=== PATIENT | female | born 1940 | race Caucasian/White ===

== ENCOUNTER 2021-10-04 20:46 | Inpatient (IN) | payer MEDICARE ==
[~2021-10-04] VITALS: Ht 162.6 cm; Wt 57.2 kg
--- NOTE | 2021-10-04 20:55 | NUR ---
ER BED 1 BIBRA FROM HOME FOR NAUSEA VOMITTING AND DIARRHEA X FEW HOURS AFTER EATING. R UPPER LIP LACERATION NOTED. MD AWARE. SON AT BEDSIDE. PT DENIES ANY CHEST PAIN. NO RESPIRATORT DISTRES NOTED. CONNECTED TO MONITOR. AWAITING MD ALSTON
[2021-10-04] MEDS ORDERED: ONDANSETRON HCL/PF 4 MG/2 ML VIAL ONE (21:24)
--- NOTE | 2021-10-04 21:25 | NUR ---
IV LINE ESTABLISHED L AC 20G, BLOOD COLLECTED AND SENT TO LAB.
[2021-10-04] MEDS ORDERED: ONDANSETRON HCL/PF 4 MG/2 ML VIAL IVP ONE (21:30)
[2021-10-04] MEDS ORDERED: IV NS 0.9% 1,000 ML BAG IV ONE (21:30)
[2021-10-04 21:47] LABS: BASOPHILS % (AUTO) 0.3 % (0.0-2.0); EOSINOPHILS % (AUTO) 1.2 % (0.0-6.0); HEMATOCRIT 40 % (33-45); HEMOGLOBIN 13.4 g/dL (11.5-14.8); LYMPHOCYTES # (AUTO) 0.4 K/uL (0.8-4.8); LYMPHOCYTES % (AUTO) 2.9 % (20.0-44.0); MEAN CORPUSCULAR HGB CONC 34 g/dl (31.0-36.0); MEAN CORPUSCULAR VOLUME 91 fL (82-100); MONOCYTES # (AUTO) 0.6 K/uL (0.1-1.30); MONOCYTES % (AUTO) 4.5 % (2.0-12.0); NEUTROPHILS % (AUTO) 91.1 % (43.0-81.0); PLATELET COUNT (AUTO) 250 K/uL (150-450); RED BLOOD CELL COUNT(AUTO) 4.39 MIL/uL (4.0-5.2); WHITE BLOOD COUNT (AUTO) 14.2 K/uL (4.3-11.0)
--- NOTE | 2021-10-04 21:49 | NUR ---
PT UNABLE TO PROVIDE URINE SAMPLE AT THIS TIME
--- NOTE | 2021-10-04 21:59 | NUR ---
COVID ANTIGEN SWAB COLLECTED AND SENT TO LAB
--- NOTE | 2021-10-04 22:22 | NUR ---
Covid swab done Addendum: 10/04/21 at 2227 by ELSA and sent to lab
--- NOTE | 2021-10-04 23:33 | NUR ---
HOSPITALIST AT BEDSIDE
--- NOTE | 2021-10-04 23:33 | NUR ---
PT UNABLE TO PROVIDE URINE SAMPLE AT THIS TIME, REFUSES URINE CATH
[2021-10-04 23:40] LABS: CALCIUM, SERUM 10.6 mg/dL (8.5-10.1); CARBON DIOXIDE 29 mmol/L (21-32); CHLORIDE 104 mmol/L (98-107); GLUCOSE 145 mg/dL (74-106); POTASSIUM 4.6 mmol/L (3.5-5.1); SODIUM SERUM 140 mmol/L (136-145); UREA NITROGEN, BLOOD 22 mg/dL (7-18)
[2021-10-04 23:45] LABS: ALANINE AMINOTRANSFERASE 12 U/L (12-78); ALBUMIN 3.4 g/dL (3.4-5.0); ALKALINE PHOSPHATASE 72 U/L (46-116); ASPARTATE AMINOTRANSFERASE 16 U/L (15-37); BILIRUBIN,DIRECT 0.2 mg/dL (0.0-0.2); BILIRUBIN,TOTAL 0.5 mg/dL (0.2-1.0); LIPASE 74 U/L (73-393); TOTAL PROTEIN, SERUM 7.6 g/dL (6.4-8.2)
[2021-10-05] MEDS ORDERED: MAG HYDROX/AL HYDROX/SIMETH 30 ML UDC PO PRN
[2021-10-05] MEDS ORDERED: MAGNESIUM HYDROXIDE 30 ML UDC PO PRN
[2021-10-05] MEDS ORDERED: MORPHINE SULFATE INJ 2 MG/ML DISP.SYRIN IV PRN
[2021-10-05] MEDS ORDERED: hydrALAZINE HCL IV 20 MG VIAL IV PRN
[2021-10-05] MEDS ORDERED: ACETAMINOPHEN 325 MG TABLET PO PRN
[2021-10-05] MEDS ORDERED: Z GUARD REMEDY 4 OZ OINT TP PRN
[2021-10-05] MEDS ORDERED: ONDANSETRON HCL/PF 4 MG/2 ML VIAL IVP PRN
[2021-10-05] MEDS ORDERED: IV NS 0.9% 1,000 ML IV SCH
--- NOTE | 2021-10-05 00:26 | NUR ---
URINE SAMPLE COLLECTED AND SENT TO LAB
--- NOTE | 2021-10-05 00:49 | NUR ---
ROOM 322-2 M/S
[2021-10-05 00:53] LABS: BILIRUBIN,URINE NEGATIVE (NEGATIVE); COLOR,URINE YELLOW (YELLOW); LEUKOCYTE ESTERASE ,URINE TRACE (NEGATIVE); NITRITE, URINE NEGATIVE (NEGATIVE); PROTEIN,URINE NEGATIVE (NEGATIVE); UGLUCOSE NEGATIVE (NEGATIVE); UROBILINOGEN,URINE 0.2 EU/dL (0.2)
--- NOTE | 2021-10-05 00:55 | NUR ---
GAVE REPORT TO OLINDA VAUGHN FOR VERENICE
[2021-10-05 01:00] LABS: BACTERIA,URINE Many /HPF (None Seen); RBC,URINE 0-2 /HPF (0-2)
[2021-10-05 01:01] LABS: SQUAMOUS EPITHELIAL CELL,UR Many /HPF (None Seen)
[2021-10-05 01:45] VITALS: BP 120/67
[2021-10-05] MEDS: DONEPEZIL 5 MG TABLET PO SCH ×2 (01:52→21:17)
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
[2021-10-05 02:15] LABS: THYROID STIMULATING HORMONE 3.375 uIU/mL (0.358-3.74)
[2021-10-05] MEDS ORDERED: LOPERAMIDE HCL (2 MG CAP) 2 MG CAPSULE PO PRN (02:30)
[2021-10-05] MEDS ORDERED: LOPERAMIDE HCL (2 MG CAP) 2 MG CAPSULE ONE (02:31)
--- NOTE | 2021-10-05 02:35 | NUR ---
MS RN NOTE PATIENT HAVING DIARRHEA X 2 SINCE ARRIVING ON FLOOR. NOTIFIED RADIO AERIAL INSTALLER MD WITH ORDER FOR PRN IMODIUM 4 MG PO Q6H. ORDER CARRIED OUT. MEDICATION GIVEN ORDERED. WILL CONTINUE TO MONITOR PATIENT
[2021-10-05 06:10] LABS: BASOPHILS % (AUTO) 0.2 % (0.0-2.0); EOSINOPHILS % (AUTO) 0.1 % (0.0-6.0); HEMATOCRIT 32 % (33-45); HEMOGLOBIN 11.1 g/dL (11.5-14.8); LYMPHOCYTES # (AUTO) 0.2 K/uL (0.8-4.8); LYMPHOCYTES % (AUTO) 2.3 % (20.0-44.0); MEAN CORPUSCULAR HGB CONC 35 g/dl (31.0-36.0); MEAN CORPUSCULAR VOLUME 92 fL (82-100); MONOCYTES # (AUTO) 0.2 K/uL (0.1-1.30); MONOCYTES % (AUTO) 2.1 % (2.0-12.0); NEUTROPHILS # (AUTO) 7.7 K/uL (1.8-8.9); NEUTROPHILS % (AUTO) 95.3 % (43.0-81.0); PLATELET COUNT (AUTO) 193 K/uL (150-450); WHITE BLOOD COUNT (AUTO) 8.1 K/uL (4.3-11.0)
[2021-10-05] MEDS ORDERED: DONE10TA44 PO (06:20)
[2021-10-05 06:35] LABS: ALBUMIN 3.2 g/dL (3.4-5.0); BILIRUBIN,TOTAL 0.6 mg/dL (0.2-1.0); CALCIUM, SERUM 8.5 mg/dL (8.5-10.1); MAGNESIUM 1.8 mg/dL (1.8-2.4); PHOSPHORUS 3.5 mg/dL (2.5-4.9); POTASSIUM 3.9 mmol/L (3.5-5.1); TOTAL PROTEIN, SERUM 6.2 g/dL (6.4-8.2)
--- NOTE | 2021-10-05 06:57 | NUR ---
MS RN CLOSING NOTE PATIENT AWAKE IN BED, ALERT/ORIENTED X 3 HOWEVER CONFUSED AT TIMES AND REPEATS STORIES OVER AND OVER. PT STATES SHE FEELS BETTER AND HOPES SHE CAN GO HOME TODAY. PATIENT STABLE ON ROOM AIR, NO S/S OF DISTRESS OR SOB NOTED, BREATHING EVEN AND UNLABORED. IV ACCESS ON LEFT AC #20G INTACT AND INFUSING NS @ 100 ML/HR. PATIENT IS AMBULATORY WITH ASSIST TO BSC, HOWEVER, HAD EPISODES OF INCONTINENCE D/T DIARRHEA, NO MORE DIARRHEA AFTER IMODIUM WAS GIVEN. SAFETY MEASURES IN PLACE: CALL LIGHT WITHIN REACH, SIDE RAILS UP X 2, BED LOCKED IN LOWEST POSITION, BED ALARM ON. WILL ENDORSE TO DAY SHIFT NURSE FOR CONTINUITY OF CARE
--- NOTE | 2021-10-05 07:30 | NUR ---
MS RN OPENING NOTE PATIENT AWAKE IN BED, ALERT/ORIENTED X 3 . UAIND BED SIDE COMMODE AT THIS TIME. PATIENT STABLE ON ROOM AIR, NO S/S OF DISTRESS OR SOB NOTED, BREATHING EVEN AND UNLABORED. IV ACCESS ON LEFT AC #20G INTACT AND INFUSING NS @ 100 ML/HR. PATIENT IS AMBULATORY WITH ASSIST. SAFETY MEASURES IN PLACE: CALL LIGHT WITHIN REACH, SIDE RAILS UP X 2, BED LOCKED IN LOWEST POSITION, BED ALARM ON. WILL CONTINUE TO MONITOR.
[2021-10-05 07:52] LABS: SERUM AMMONIA 39 umol/L (11-32)
[2021-10-05 08:00] VITALS: BP 116/53
[2021-10-05] MEDS: HEPARIN SODIUM, PORCINE 5000 UNITS/1 ML VIAL SQ SCH ×2 (09:45→21:18)
[2021-10-05] MEDS: ENSURE ENLIVE CHOC 237 ML CAN PO SCH (12:13)
[2021-10-05] MEDS: CEFTRIAXONE 1 G in IV D5W 50 ML IV SCH (13:21)
[2021-10-05 16:00] VITALS: BP 104/53
[2021-10-05] MEDS: IV NS 0.9% 1,000 ML IV PRN (17:06)
--- NOTE | 2021-10-05 19:00 | NUR ---
Rn opening notes Pt is sitting in bed comfortably talking with Pt's son. Pt is alert and orientedX3. On room air. No SOB. No S/S of distress noted. Iv site at LAC # 20 is clean, intact and infuising well NS@ 100ml/hr. Safety precautions is maintained all the time. bed at low position, brakes locked, side rails up#2, bedside commode at the bedside, hob elevated and call light is within reach. Will continue to monitor.
--- NOTE | 2021-10-05 19:10 | NUR ---
MS RN CLOSING NOTE PATIENT AWAKE IN BED, ALERT/ORIENTED X 3 . SON AT HER BED SIDE. PATIENT STABLE ON ROOM AIR, NO S/S OF DISTRESS OR SOB NOTED, BREATHING EVEN AND UNLABORED. IV ACCESS ON LEFT AC #20G INTACT AND INFUSING NS @ 100 ML/HR. PATIENT IS AMBULATORY WITH ASSIST. ALL DUE MEDS GIVEN ORDERED.SAFETY MEASURES IN PLACE: FALL SAFETY IN PLACE.CALL LIGHT WITHIN REACH, SIDE RAILS UP X 2, BED LOCKED IN LOWEST POSITION, BED ALARM ON. WILL ENDORSE FOR VERENICE.
[2021-10-05 20:00] VITALS: BP 124/77
[2021-10-06] MEDS: IV NS 0.9% 1,000 ML IV PRN (03:04)
--- NOTE | 2021-10-06 05:25 | NUR ---
RN notes Pt is complaining of headache and requesting meds. administered tylenol 650 mg/po/prn as ordered for headache. will continue to monitor.
[2021-10-06 06:29] LABS: BASOPHILS % (AUTO) 0.5 % (0.0-2.0); EOSINOPHILS % (AUTO) 3.7 % (0.0-6.0); HEMATOCRIT 31 % (33-45); HEMOGLOBIN 11.3 g/dL (11.5-14.8); LYMPHOCYTES # (AUTO) 0.6 K/uL (0.8-4.8); LYMPHOCYTES % (AUTO) 13.6 % (20.0-44.0); MEAN CORPUSCULAR HGB CONC 36 g/dl (31.0-36.0); MEAN CORPUSCULAR VOLUME 92 fL (82-100); MONOCYTES # (AUTO) 0.4 K/uL (0.1-1.30); MONOCYTES % (AUTO) 8.4 % (2.0-12.0); NEUTROPHILS # (AUTO) 3.5 K/uL (1.8-8.9); NEUTROPHILS % (AUTO) 73.8 % (43.0-81.0); PLATELET COUNT (AUTO) 177 K/uL (150-450); RED BLOOD CELL COUNT(AUTO) 3.42 MIL/uL (4.0-5.2); WHITE BLOOD COUNT (AUTO) 4.7 K/uL (4.3-11.0)
[2021-10-06 06:36] LABS: CALCIUM, SERUM 8.3 mg/dL (8.5-10.1); CARBON DIOXIDE 25 mmol/L (21-32); CHLORIDE 109 mmol/L (98-107); CREATININE 0.9 mg/dL (0.6-1.3); GLUCOSE 90 mg/dL (74-106); MAGNESIUM 1.8 mg/dL (1.8-2.4); PHOSPHORUS 3.1 mg/dL (2.5-4.9); POTASSIUM 3.4 mmol/L (3.5-5.1); SODIUM SERUM 141 mmol/L (136-145); UREA NITROGEN, BLOOD 16 mg/dL (7-18)
--- NOTE | 2021-10-06 06:57 | NUR ---
RN closing notes Pt is resting in bed comfortably. Pt is alert and orientedX3 and forgetful easily. On room air. No SOB. No S/S of distress noted. VS is stable. Routine meds were given as ordered. Iv site at LAC # 20 is clean, intact and infuising well NS@ 100ml/hr. Kept Pt clean, dry and comfortable. Safety precautions is maintained all the time. bed at low position, brakes locked, side rails up#2, bedside commode at the bedside, bed alarm is on, hob elevated and call light is within reach. Will endorse to am nurse for VERENICE.
--- NOTE | 2021-10-06 07:30 | NUR ---
MS RN OPENING NOTES RECEIVED PATIENT ON BED AWAKE AND A/O X3. ON ROOM AIR TOLERATING WELL. NO SOB NOTED. NOT IN DISTRESS. WITH NO COMPLAINTS OF PAIN OR DISCOMFORT AT THIS TIME. WITH IV ACCESS AT LEFT AC G20 WITH NS AT 100ML/HR INFUSING WELL. SAFETY MEASURES IN PLACED. CALL LIGHT WITHIN REACH. BED ON LOWEST LOCKED POSITION, SIDE RAILS UP X2. WILL CONTINUE TO MONITOR.
[2021-10-06 08:00] VITALS: BP 117/55
[2021-10-06] MEDS: HEPARIN SODIUM, PORCINE 5000 UNITS/1 ML VIAL SQ SCH ×2 (09:48→21:39)
[2021-10-06] MEDS: ENSURE ENLIVE CHOC 237 ML CAN PO SCH (09:51)
[2021-10-06] MEDS ORDERED: POTASSIUM CHLORIDE 20 MEQ TAB.PRT.SR PO SCH (10:30)
--- NOTE | 2021-10-06 10:42 | NUR ---
WOUND CARE CONSULT; PT PRESENTS WITH BLANCHABLE REDNESS TO RT LOWER LEG, SOME DISCOLORATION TO LEFT KNEE AND CRUSTED AREA TO UPPER LIP, PRESENT ON ADMISSION. PT IS AMBULATORY AT THIS TIME AND IS SITTING IN CHAIR, VISITING WITH SON. WILL SEE PRN.
[2021-10-06] MEDS: CEFTRIAXONE 1 G in IV D5W 50 ML IV SCH (11:42)
[2021-10-06 16:00] VITALS: BP 143/73
[2021-10-06] MEDS: MEMANTINE HCL 5 MG TABLET PO SCH (16:31)
--- NOTE | 2021-10-06 19:30 | NUR ---
RN OPENING NOTE PATIENT IN BED, EYES CLOSED. EASILY AWAKENED, PATIENT IS A/O X 3 AT THIS TIME, PT VERY FORGETFUL. CURRENTLY ON RA, TOLERATING WELL, BREATHING EVEN AND UNLABORED. PATIENT HAS A LAC 20 G WITH NS @100 ML/HR ONGOING. PATIENT NOT IN ANY DISCOMFORT OR PAIN AT THIS TIME. PATIENT ABLE TO WALK TO BATHROOM STEADILY. SAFETY MEASURES IN PLACE: BED LOCKED AND IN LOWEST POSITION, CALL LIGHT WITHIN REACH, SIDE RAILS UP. WILL MONITOR PATIENT CLOSELY.
--- NOTE | 2021-10-06 19:47 | NUR ---
MS RN CLOSING NOTES PATIENT ON BED AWAKE AND A/O X3. ON ROOM AIR TOLERATING WELL. NO SOB NOTED. NOT IN DISTRESS. WITH NO COMPLAINTS OF PAIN OR DISCOMFORT AT THIS TIME. WITH IV ACCESS AT LEFT AC G20 WITH NS AT 100ML/HR INFUSING WELL. DUE MEDS GIVEN. SAFETY MEASURES IN PLACED. CALL LIGHT WITHIN REACH. BED ON LOWEST LOCKED POSITION, SIDE RAILS UP X2. WILL ENDORSE TO NEXT SHIFT FOR VERENICE.
[2021-10-06 20:00] VITALS: BP 129/57
[2021-10-06] MEDS: DONEPEZIL 5 MG TABLET PO SCH (21:38)
--- NOTE | 2021-10-06 23:40 | NUR ---
PATIENT ACCIDENTALLY PULLED IV WHILE GOING TO USE THE BATHROOM, NEW IV ACCESS INSERTED ON THE RAC 22 G- PATENT AND INTACT.
[2021-10-07 06:10] LABS: CALCIUM, SERUM 8.5 mg/dL (8.5-10.1); CREATININE 0.8 mg/dL (0.6-1.3); POTASSIUM 3.3 mmol/L (3.5-5.1)
--- NOTE | 2021-10-07 07:33 | NUR ---
RN OPENING NOTE PATIENT IN BED RESTING, AWAKE, A/O X3. NO S/S OF PAIN NOTED AT THIS TIME. ON ROOM AIR, NO DISTRESS OR SHORTNESS OF BREATH NOTED. IV ACCESS RAC #22G INTACT, PATENT AND FLUSHING WELL. FALL AND SAFETY MEASURES IN PLACE, BED ALARM ON, BED IN LOW AND LOCK POSITION, CALL LIGHT AND TABLE WITHIN EASY REACH, SIDE RAILS UP X2. WILL CONTINUE TO MONITOR.
[2021-10-07] MEDS: MEMANTINE HCL 5 MG TABLET PO SCH (08:06)
[2021-10-07] MEDS: ENSURE ENLIVE CHOC 237 ML CAN PO SCH (08:07)
[2021-10-07] MEDS: HEPARIN SODIUM, PORCINE 5000 UNITS/1 ML VIAL SQ SCH (08:08)
[2021-10-07] MEDS ORDERED: POTASSIUM CHLORIDE 20 MEQ TAB.PRT.SR PO SCH (11:00)
[2021-10-07] MEDS ORDERED: CEPH500C2 PO (11:48)
[2021-10-07] MEDS ORDERED: MEMA5TAB PO (11:48)
[2021-10-07] MEDS: CEFTRIAXONE 1 G in IV D5W 50 ML IV SCH (12:08)
--- NOTE | 2021-10-07 17:50 | NUR ---
BLOCK CAPTAIN NOTE PATIENT DISCHARGE IN MEDICAL STABLE CONDITION. A/O X4. V/S TAKEN, STABLE AND RECORDED. NO IV ACCESS. PATIENT WAS VERY ANXIOUS TO LEAVE AND GO HOME AND DIDN'T WANT TO WAIT ANY LONGER, PATIENT REFUSED SKIN ASSESSMENT AND PICTURES, PATIENT HAD A RIGHT UPPER LIP LACERATION AND LEFT KNEE BRUISE. NAME ARM BAND REMOVED. ALL BELONGINGS CHECKED AND SIGNED. HEALTH TEACHING AND DISCHARGE INSTRUCTIONS GIVEN AND VERBALIZED UNDERSTANDING. PATIENT LEFT UNIT AMBULATING WITH NO SIGNS OF DISTRESS, ACCOMPANIED BY RN TO THE LOBBY. PATIENT LEFT UNIT WITH SON. PATIENT WENT HOME WITH HOME HEALTH, ASSISTED HOME HEALTH INFORMATION WAS PROVIDED TO PATIENT. CHARGE NURSE AWARE OF DISCHARGED.
== END 2021-10-07 13:30 | disposition home health service (06) | DRG 640 ==
LOC: ER 20:50 → MED 10-05 01:20
PROVIDERS: ADMIT Internal Medicine; ATTEND Nurse Practitioner Acute Care
DX: R62.7 Adult failure to thrive (principal); N17.0 Acute kidney failure with tubular necrosis; G93.41 Metabolic encephalopathy; N39.0 Urinary tract infection, site not specified; E86.0 Dehydration; D72.829 Elevated white blood cell count, unspecified; Z20.822 Contact with and (suspected) exposure to COVID-19; G30.9 Alzheimer's disease, unspecified; F02.80 Dementia in other diseases classified elsewhere, unspecified severity, without behavioral disturbance, psychotic disturbance, mood disturbance, and anxiety; K57.30 Diverticulosis of large intestine without perforation or abscess without bleeding; E88.09 Other disorders of plasma-protein metabolism, not elsewhere classified
CPT/HCPCS: 36415; 70450-TC; 71045-TC; 80048-TC; 80053-TC; 80076-TC; 81001; 82140-TC; 82550-TC; 82607-TC; 82962-TC; 83605-TC; 83690-TC; 83735-TC; 84100-TC; 84443-TC; 84484-TC; 85025-TC; 85730-TC; 87081-TC; 87086-TC; 97116-TC; 97530-TC; C9803; G0378; G0480; J0696; J1644; J2405; J7030; J7060